=== PATIENT | male | born 1975 | race Caucasian/White ===

== ENCOUNTER 2018-07-11 13:41 | Emergency (ER) | payer OTHER, SELFPAY ==
[2018-07-11 13:57] VITALS: BP 113/72; PULSE 81; RESP 16; TEMP 36.8; O2SAT 96; BMI 31.4
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
--- NOTE | 2018-07-11 14:17 | DI.CT.S_ITS ---
PROCEDURE: CT HEAD/BRAIN WO CON INDICATIONS: Increase in seizure activity TECHNIQUE: Noncontrast 4.5 mm thick angled axial sections acquired from the foramen magnum to the vertex, with coronal and sagittal reformats. For radiation dose reduction, the following was used: automated exposure control, adjustment of mA and/or kV according to patient size. COMPARISON: None. FINDINGS: Image quality: Excellent. CSF spaces: Basal cisterns are patent. No extra-axial fluid collections. Ventricles are normal in size and shape. Moderate size chronic or subacute infarct within the left lateral temporal lobe. Brain: No midline shift. No intracranial masses or hemorrhage. Lay-white matter interface is normal. Skull and face: Calvarium and visualized facial bones are intact, without suspicious lesions. Sinuses: Visualized sinuses and mastoids are clear. IMPRESSION: 1. No acute intracranial abnormality. 2. 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 Dictated by: Garland Jarrett M.D. on 07/11/2018 at 15:19 Approved by: Garland Jarrett M.D. on 07/11/2018 at 15:20
[2018-07-11 14:56] LABS: Add Manual Diff / Slide Review NO; Basophils Percent Auto 1.2 % (0-2); Eosinophils Percent Auto 2.5 % (2-4); Hematocrit 40.6 % (41-53); Hemoglobin 14.4 g/dL (13.5-17.5); Mean Corpuscular HGB Conc 35.4 % (30-36); Mean Corpuscular Hemoglobin 33.7 PG (26-34); Mean Corpuscular Volume 95.2 fL (80-100); Monocytes Percent Auto 9.7 % (3-14); Neutrophils Absolute Auto 3500 /uL (3000-5900); Neutrophils Percent Auto 52.6 % (50-75); Platelet Count 255 X10^3/uL (150-400); Red Blood Cell Count 4.27 X10^6/uL (4.5-5.9); Red Cell Distribution Width 12.8 % (11.6-14.8); White Blood Cell Count 6.6 X10^3/uL (4.5-11.0)
[2018-07-11 15:05] LABS: Phosphorous 3.5 mg/dL (2.5-4.5)
[2018-07-11 15:06] LABS: BUN Creatinine Ratio 16.3 (6-22); Blood Urea Nitrogen 13 mg/dL (9-20); Calcium 9.1 mg/dL (8.4-10.2); Carbon Dioxide 33 mmol/L (22-32); Chloride 93 mmol/L (98-107); Estimated Glomerular Filt Rate > 60.0 mL/min (>60); Glucose 97 mg/dL (70-100); HEMOLYSIS < 15 (0-50); Magnesium 2.5 mg/dL (1.6-2.3); Sodium 133 mmol/L (137-145)
[2018-07-11] MEDS: KETOROLAC 60 MG/2 ML VIAL 30 MG IV (15:06)
[2018-07-11] MEDS: SODIUM CHLORIDE 0.9% 1,000 ML 1000 ML IV (15:06)
[2018-07-11 15:14] VITALS: BP 114/88; PULSE 89; RESP 22; O2SAT 99
--- NOTE | 2018-07-11 15:14 | DI.RAD.S_ITS ---
PROCEDURE: XR CHEST 1V INDICATIONS: Increase in seizure activity TECHNIQUE: One view of the chest was acquired. COMPARISON: None. FINDINGS: Surgical changes and devices: None. Lungs and pleura: No pleural effusions or pneumothorax. Lungs are clear. Mediastinum: Mediastinal contours appear normal. Heart size is normal. Bones and chest wall: No suspicious bony lesions. Overlying soft tissues appear unremarkable. IMPRESSION: No acute cardiopulmonary pathology. Dictated by: Alex Boyd M.D. on 07/11/2018 at 15:28 Approved by: Alex Boyd M.D. on 07/11/2018 at 15:28
[2018-07-11 15:23] LABS: Prolactin 16.3 ng/mL (3.7-17.9)
[2018-07-11 16:05] VITALS: BP 124/84; PULSE 85; RESP 19; O2SAT 99
[2018-07-11 16:48] VITALS: BP 117/62; PULSE 79; RESP 18; O2SAT 99
[2018-07-13 14:33] LABS: Carbamazepine Tegretol Level 8.7 mg/L (4.0-12.0)
[2018-07-15 07:10] LABS: Lamotrigine Lamictal 4.5 mcg/mL (4.0-18.0)
== END 2018-07-11 17:18 | disposition home or self-care (01) ==
PROVIDERS: Emergency Provider Nurse Practitioner Family
DX: R56.9 Unspecified convulsions (principal)
CPT/HCPCS: 36591; 70450; 71045; 80048; 80156; 80175; 82962; 83735; 84100; 84146; 85025; 93005; 93010; 96361; 96374; 99283; 99285; J1885

== ENCOUNTER 2018-07-12 08:08 | Emergency (ER) | payer OTHER, SELFPAY ==
[2018-07-12] VITALS (21 sets, daily range): BP systolic 106–143; BP diastolic 61–94; PULSE 74–99; RESP 14–97; TEMP 37.1; O2SAT 93–100
--- NOTE | 2018-07-12 08:24 | PC.NURSE ---
In room. to see. Has hx of CBI and was seen yesterday for changes in mentation. Has had instances in past but, per father, not like this.
--- NOTE | 2018-07-12 08:38 | PC.NURSE ---
Pt calling out in room. Is his normal behavior.
[2018-07-12 09:19] LABS: Add Manual Diff / Slide Review NO; Basophils Percent Auto 1.1 % (0-2); Eosinophils Percent Auto 2.4 % (2-4); Hematocrit 39.2 % (41-53); Hemoglobin 14.2 g/dL (13.5-17.5); Lymphocytes Percent Auto 25.7 % (25-40); Mean Corpuscular HGB Conc 36.4 % (30-36); Mean Corpuscular Hemoglobin 34.4 PG (26-34); Mean Corpuscular Volume 94.7 fL (80-100); Neutrophils Absolute Auto 4600 /uL (3000-5900); Neutrophils Percent Auto 63.8 % (50-75); Platelet Count 255 X10^3/uL (150-400); Red Blood Cell Count 4.14 X10^6/uL (4.5-5.9); Red Cell Distribution Width 12.6 % (11.6-14.8); White Blood Cell Count 7.1 X10^3/uL (4.5-11.0)
[2018-07-12 09:31] LABS: Alanine Aminotransferase 44 IU/L (21-72); Albumin 4.4 g/dL (3.5-5.0); Albumin Globulin Ratio 1.6 (1.0-2.8); Alkaline Phosphatase 45 U/L (38-126); Aspartate Aminotransferase 36 IU/L (17-59); BUN Creatinine Ratio 16.3 (6-22); Bilirubin Total 0.6 mg/dL (0.2-1.3); Blood Urea Nitrogen 13 mg/dL (9-20); Calcium 9.1 mg/dL (8.4-10.2); Carbon Dioxide 29 mmol/L (22-32); Chloride 95 mmol/L (98-107); Estimated Glomerular Filt Rate > 60.0 mL/min (>60); Globulin 2.8 g/dL (1.7-4.1); Glucose 103 mg/dL (70-100); Potassium 4.8 mmol/L (3.4-5.1); Sodium 134 mmol/L (137-145); Total Protein 7.2 g/dL (6.3-8.2)
[2018-07-12 09:32] LABS: HEMOLYSIS 85 (0-50)
[2018-07-12 09:50] LABS: Procalcitonin < 0.05 ng/mL (<0.5)
[2018-07-12 10:18] LABS: Bacteria Urine None Seen; WBC Urine None Seen (0-5/HPF)
[2018-07-12 10:20] LABS: Appearance Urine UA CLEAR; Bilirubin Urine UA NEGATIVE (NEGATIVE); Color Urine UA YELLOW; Glucose Urine UA NEGATIVE (Normal); Ketones Urine UA NEGATIVE (NEGATIVE); Leukocyte Esterase Urine UA NEGATIVE (NEGATIVE); Nitrite Urine UA Negative (Negative); Occult Blood Urine UA 2+ (Negative); Protein Urine UA NEGATIVE (Negative); Urobilinogen Urine UA 0.2 E.U./dL (0.2); pH Urine UA 7.5 (4.5-8.0)
[2018-07-12 10:29] LABS: Culture Indicated Urine Cult Not Indicated; RBC Urine 5-10/HPF (0-5/HPF)
[2018-07-12] MEDS: KETAMINE 500 MG/5 ML INJ 150 MG IV (11:24)
--- NOTE | 2018-07-12 11:47 | RT ---
Prepared equipment for conscious sedation. Pt. rec'd ketamine with rapid onset of relaxation. Baseline entco2 32-37mmhg. Hr 84, rr 18-22. Placed on 2lpm nc with spo2 98-100%. Pt. was placed on his right side during lumbar puncture. VS stable throughout procedure with no airway obstruction or desaturation. Mild snoring. Pt. maintained regular respiration throughout and after procedure and was moving his arms and legs intermittently. Good bilateral BS Entco2 36 mmhg after procedure with good waveform lying supine. Pt. somewhat responsive to commands. Left all equipment in place. RN informed.
[2018-07-12 12:15] LABS: Glucose CSF 63 mg/dL (40-70)
--- NOTE | 2018-07-12 12:21 | PC.NURSE ---
Pt is awake. Able to manage own airway. Off O2.
[2018-07-12 12:22] LABS: Appearance CSF C (Clear); CSF Tube Number 2; CSF Tube Volume 2.0 mL; Color CSF Colorless (Colorless); Red Blood Cell CSF 1 RBC /uL; White Blood Cell CSF 0 MONO/uL (0-5)
[2018-07-12 12:26] LABS: Total Protein CSF 40 mg/dL (12-60)
[2018-07-12 13:43] LABS: Cryptococcus neoformans/gattii Not Detected (Not Detect); Enterovirus Not Detected (Not Detect); Escherichia coli K1 Not Detected (Not Detect); Haemophilus influenzae Not Detected (Not Detect); Herpes simplex virus 1 Not Detected (Not Detect); Herpes simplex virus 2 Not Detected (Not Detect); Human herpesvirus 6 Not Detected (Not Detect); Human parechovirus Not Detected (Not Detect); Listeria monocytogenes Not Detected (Not Detect); Neisseria meningitidis Not Detected (Not Detect); Streptococcus agalactiae Not Detected (Not Detect); Streptococcus pneumoniae Not Detected (Not Detect); Varicella Zoster Virus Not Detected
[2018-07-12] MEDS: LORazepam 2 MG/ML SYRINGE 1 MG IV (14:22)
--- NOTE | 2018-07-12 14:26 | PC.NURSE ---
1300: rec'd report from GUILLERMO Branham. Pt having emotional outbursts sinc after discharge yesterday. Advised by Joy that spinal tap was done, consent in chart. pt tolerated well. Pt resting in bed. Crying out periodically. Dr Sanabria made aware. 1330: [facility] Neuro paged 1400: pt resting in room maintaining airway. advised father that Dr is speaking with Neuro at [facility] for consult. 1430: given Ativan 1mg ivp for agitation. tolerated well. joking and in good spirits with this RN when entering room. Advised father that we will update him on plan of care.
[2018-07-12 14:43] LABS: Urine Amphetamines Negative (Negative); Urine Barbiturates Negative (Negative); Urine Benzodiazepines Negative (Negative); Urine Cocaine Negative (Negative); Urine MDMA Negative (Negative); Urine Methadone Negative (Negative); Urine Methamphetamines Negative (Negative); Urine Morphine/Opi cutoff 2000 Negative (Negative); Urine Oxycodone Negative (Negative); Urine Phencyclidine Positive (Negative); Urine Tetrahydrocannabinol Negative (Negative); Urine Tricyclic Antidepressant Positive (Negative)
--- NOTE | 2018-07-12 15:31 | PC.NURSE ---
Pt resting in bed. Pt has not had any emotional outbursts heard by RN s/p marielena. Father requsting MRI as previously discussed. Awaiting Dr Sanabria to give family update.
--- NOTE | 2018-07-12 15:41 | PC.NURSE ---
Dr Saanbria on phone with neuro. Plan is to transfer to [place] for Neuro and MRI. Father in agreement. Awaiting acceptance.
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
[2018-07-12] MEDS: SODIUM CHLORIDE 0.9% IV (16:27)
[2018-07-12] MEDS: PHENYTOIN IV (16:27)
[2018-07-12 16:52] LABS: Urine Amphetamines Negative (Negative); Urine Barbiturates Negative (Negative); Urine Benzodiazepines Negative (Negative); Urine Cocaine Negative (Negative); Urine MDMA Negative (Negative); Urine Methadone Negative (Negative); Urine Methamphetamines Negative (Negative); Urine Morphine/Opi cutoff 2000 Negative (Negative); Urine Oxycodone Negative (Negative); Urine Phencyclidine Positive (Negative); Urine Tetrahydrocannabinol Negative (Negative); Urine Tricyclic Antidepressant Positive (Negative)
--- NOTE | 2018-07-12 16:52 | PC.NURSE ---
Diet tray provided. pt sitting up eating. father in room
[2018-07-12] MEDS: LORazepam 2 MG/ML SYRINGE IV (17:32)
--- NOTE | 2018-07-12 17:35 | DI.CT.S_ITS ---
PROCEDURE: CT HEAD/BRAIN WO CON INDICATIONS: change in mental status, rightward forced deviation w/unequal pupils TECHNIQUE: Noncontrast 4.5 mm thick angled axial sections acquired from the foramen magnum to the vertex, with coronal and sagittal reformats. For radiation dose reduction, the following was used: automated exposure control, adjustment of mA and/or kV according to patient size. COMPARISON: [facility], CT, CT HEAD/BRAIN WO CON, 07/11/2018, 14:59. FINDINGS: Image quality: Degraded by motion artifact. CSF spaces: Basal cisterns are patent. No extra-axial fluid collections. Ventricles are normal in size and shape. Brain: No midline shift. No change in small chronic versus subacute right frontoparietal lobe infarct. No change in chronic versus subacute left temporal lobe infarct. No intracranial masses or hemorrhage. Lay-white matter interface is normal. Skull and face: Calvarium and visualized facial bones are intact, without suspicious lesions. Sinuses: Visualized sinuses and mastoids are clear. IMPRESSION: 1. No change in chronic versus subacute bilateral infarcts. 2. No acute intracranial abnormality. Dictated by: Garland Jarrett M.D. on 07/12/2018 at 18:06 Approved by: Garland Jarrett M.D. on 07/12/2018 at 18:07
--- NOTE | 2018-07-12 18:02 | PC.NURSE ---
1730: dilantin complete. immeadiately after, pt having incomprehensible speech, nystagmus, forced gaze to the right, unequal pupils, rolling around in the bed and stretching his body out with arms above head and pointing of toes. Dr Sanabria called into room immediately. IV flushed with NS and another IV started by GUILLERMO Lee. This RN admin'd 2mg Ativan, orders for 2nd stat head CT. 1749: Head CT complete. Pt tolerated well, pt appears drowsy, responding to verbal with slurred speech > than baseline. Father left for [place] to meet pt. Advised father that transport will not be here until 193. Resting in bed. Seizure pads in place. VSS 112/68 HR 89 SPO2 99% RA. Will continue to monitor.
--- NOTE | 2018-07-12 18:45 | PC.NURSE ---
1830: pt responding more to verbal and sound. post ictal. maintaining airway. seziure pads in place.
--- NOTE | 2018-07-12 20:19 | PC.NURSE ---
Report given to GUILLERMO Mendes and GUILLERMO Brown at [facility] Neuro unit [address] rm [id number]
== END 2018-07-12 20:20 | disposition short-term general hospital (02) ==
PROVIDERS: Emergency Medicine; Emergency Provider Emergency Medicine
DX: R41.82 Altered mental status, unspecified (principal)
CPT/HCPCS: 36415; 36591; 62270; 70450; 80053; 80305; 81001; 81003; 82945; 84145; 84157; 85025; 87070; 87102; 87205; 87255; 87798; 89051; 96374; 96375; 96376; 99152; 99285; J1165; J2060